=== PATIENT | male | born 1955 | race Hispanic/Latino ===

== ENCOUNTER 2020-10-31 17:43 | Emergency (ER) | payer MEDICARE ==
[~2020-10-31 17:43] MED LIST: EPINEPHrine 1 MG/10 ML SYRINGE ONE; SODIUM BICARB 8.4% 50 MEQ/50 ML SYRINGE IV ONE
--- NOTE | 2020-10-31 17:56 | Emergency Department Report ---
ED CPR HPI - General Stated Complaint: CARDIAC ARREST Time Seen by Provider: 10/31/20 17:52 - History of Present Illness Initial Comments: 65-year-old male, history of hypertension, presents to ED in cardiac arrest. According to EMS, patient had been outside cutting the grass. Patient was talking to a neighbor when he suddenly collapsed and became unresponsive. No bystander CPR was performed. Upon EMS arrival, patient was in asystole. Patient received epi x4 and bicarb x1. Rhythm of asystole the entire time. Patient down for approximately 45 minutes prior to ED arrival. MD Complaint: collapsed during activity -: hour(s) (1) Place: home Bystander CPR Performed: Yes Initial Findings in the Field: unresponsive, no respirations, no pulse, other rhythm (Asystole) ROSC in the Field: No Treatments Prior to Arrival: intubation, chest compressions, epinephrine mgs # (4), sodium bicarbonate (x1) - Related Data Allergies Allergy/AdvReac Type Severity Reaction Status Date / Time No Known Allergies Allergy Unverified 10/31/20 17:56 ED Review of Systems ROS: Stated complaint: CARDIAC ARREST Other details as noted in HPI Comment: Unobtainable due to pts medical conditions ED Physical Exam - Head Head exam: Present: atraumatic, normocephalic - Eye Pupils: Present: other (Fixed and dilated bilaterally) - ENT ENT exam: Present: other (ET tube in place) - Neck Neck exam: Present: normal inspection - Respiratory Respiratory exam: Present: normal lung sounds bilaterally, other (No spontaneous breaths) - Cardiovascular Cardiovascular Exam: Present: other (No palpable pulse) - GI/Abdominal GI/Abdominal exam: Present: soft. Absent: distended - Extremities Exam Extremities exam: Present: normal inspection - Neurological Exam Neurological exam: Present: other (GCS 3) - Skin Skin exam: Present: warm, dry, intact ED Medical Decision Making - Medical Decision Making 65-year-old male presents to ED in cardiac arrest. Patient in arrest for nearly an hour prior to ED arrival. Upon ED arrival, patient found to be in asystole. Please see nurses note for code details. Ultimately we were unable to achieve ROSC. Time of was called at 17:50. - Differential Diagnosis OK, PE, aortic dissection Critical care attestation.: If time is entered above; I have spent that time in minutes in the direct care of this critically ill patient, excluding procedure time. ED Disposition Clinical Impression: Cardiac arrest Disposition: 20 Is pt being admited?: No Condition: Stable Referrals: PRIMARY CARE, [Primary Care Provider] - 3-5 Days Time of Disposition: 17:56
== END 2020-11-01 00:15 ==
LOC: ED 17:43
DX: I46.9 Cardiac arrest, cause unspecified (principal); I10 Essential (primary) hypertension
CPT/HCPCS: 92950; 99285; J0171